=== PATIENT | female | born 2000 | race Two or more races ===

== ENCOUNTER 2023-08-08 17:59 | Emergency (ER) | payer MEDICAID ==
[~2023-08-08] VITALS: Ht 170.2 cm; Wt 104.3 kg
[2023-08-08 18:07] VITALS: BP 136/75; TEMP 99; O2SAT 100
[2023-08-08] MEDS ORDERED: ALBU18HF2 INH (19:57)
[2023-08-08] MEDS ORDERED: BENZ-13 PO (19:57)
[2023-08-08] MEDS ORDERED: PSEUDOEPHEDRINE HCL 30 MG TABLET ONE (20:06)
[2023-08-08] MEDS ORDERED: BENZONATATE 100 MG CAPSULE PO ONE (20:06)
[2023-08-08] MEDS: BENZONATATE 100 MG CAPSULE PO PRN (20:11)
[2023-08-08] MEDS: PSEUDOEPHEDRINE HCL 30 MG TABLET PO ONE (20:11)
== END 2023-08-08 20:24 | disposition home or self-care (01) ==
LOC: ER 19:18
DX: R05.9 Cough, unspecified (principal); Z88.8 Allergy status to other drugs, medicaments and biological substances
CPT/HCPCS: 71045-TC